=== PATIENT | female | born 1975 | race Caucasian/White ===

== ENCOUNTER 2018-10-04 08:00 | Outpatient (CLI) | payer BC, MEDICAID ==
[2018-10-04 12:23] LABS: BASOPHILS % (AUTO) 0.5 %; EOSINOPHILS # (AUTO) 0.1 10^3/uL (0.0-0.7); EOSINOPHILS % (AUTO) 2.3 %; HGB - HEMOGLOBIN 13.5 g/dL (12.0-16.0); LYMPHOCYTES # (AUTO) 2.5 10^3/uL (1.5-3.5); LYMPHOCYTES % (AUTO) 44.1 %; MEAN CORPUSCULAR HEMOGLOBIN 33.4 pg (27.0-31.0); MEAN CORPUSCULAR HGB CONC 34.6 g/dL (32.0-36.0); MEAN CORPUSCULAR VOLUME 96.6 fL (81.0-99.0); MEAN PLATELET VOLUME 8.7 fL (7.9-10.8); MONOCYTES # (AUTO) 0.4 10^3/uL (0.0-1.0); MONOCYTES % (AUTO) 6.9 %; NEUTROPHILS # (AUTO) 2.6 10^3/uL (1.5-6.6); NEUTROPHILS % (AUTO) 46.2 %; PLT - PLATELET COUNT 220 10^3/uL (130-450); RED BLOOD COUNT 4.04 10^6/uL (4.20-5.40); RED CELL DISTRIBUTION WIDTH 13.2 % (12.0-15.0); WHITE BLOOD COUNT 5.7 x10^3/uL (4.8-10.8)
[2018-10-04 13:13] LABS: CARBON DIOXIDE - CO2 27 mmol/L (21-32); CHLORIDE 104 mmol/L (101-111); GLUCOSE 94 mg/dL (70-100); SODIUM 138 mmol/L (135-145)
[2018-10-04 13:56] LABS: ALBUMIN 4.1 g/dL (3.2-5.5); ALBUMIN/GLOBULIN RATIO 1.4 (1.0-2.2); ALKALINE PHOSPHATASE 36 IU/L (42-121); ALT ALANINE AMINOTRANSFERASE 19 IU/L (10-60); AST ASPARTATE AMINOTRANSFERASE 22 IU/L (10-42); BILIRUBIN,TOTAL 0.8 mg/dL (0.2-1.0); BUN - BLOOD UREA NITROGEN 14 mg/dL (6-20); CHOL/HDL RATIO 4.5 (<4.4); CHOLESTEROL 227 mg/dL; CREATININE 0.9 mg/dL (0.4-1.0); GFR - MDRD 69 (>89); HDL CHOLESTEROL 50 mg/dL; LDL CHOLESTEROL,CALCULATED 163 mg/dL; LDL/HDL RATIO 3.3 (<4.4); TOTAL PROTEIN 7.1 g/dL (6.7-8.2); VLDL CHOLESTEROL 14 mg/dL
== END 2018-10-04 23:59 | disposition home or self-care (01) ==
LOC: LAB.WCP 08:00
PROVIDERS: ATTEND Nurse Practitioner
DX: R03.0 Elevated blood-pressure reading, without diagnosis of hypertension (principal)
CPT/HCPCS: 36415; 80053; 80061; 83721; 85025

== ENCOUNTER 2018-11-23 08:00 | Outpatient (CLI) | payer MEDICAID ==
[2018-11-23 19:38] LABS: % IRON SATURATION 19 % (20-50); IRON 67 ug/dL (28-170); TOTAL IRON BINDING CAPACITY 350 ug/dL (250-450); TRANSFERRIN 250 mg/dL (192-382)
[2018-11-23 19:53] LABS: FERRITIN 61.7 ng/mL (11.0-306.8)
[2018-11-23 19:57] LABS: FOLATE 14.78 ng/mL (5.90 - >24.8)
== END 2018-11-23 23:59 | disposition home or self-care (01) ==
LOC: LAB.N 08:00
PROVIDERS: ATTEND Nurse Practitioner
DX: D64.9 Anemia, unspecified (principal)
CPT/HCPCS: 36415; 82607; 82728; 82746; 83540; 84466

== ENCOUNTER 2018-11-23 14:16 | Outpatient (CLI) | payer MEDICAID ==
--- NOTE | 2018-11-24 11:48 | Mammography Report ---
Reason: SCREENING MAMMO Procedure Date: 11/23/2018 Accession Number: [id number] / [id number] Procedure: [facility] - Screening Mammo Dig Bilat CPT Code: FULL RESULT: EXAM: Screening Mammo Dig Bilat DATE: 11/23/2018 2:43 PM CLINICAL HISTORY: Routine screening. No reported personal or family history of breast cancer. TECHNIQUE: Bilateral CC and MLO views were obtained. COMPARISON: Baseline exam. FINDINGS: The breasts demonstrate scattered fibroglandular densities bilaterally. Right breast: There is an 8 mm one view asymmetry seen in the superior right MLO view only, 10 cm from the nipple. There are no suspicious calcifications or areas of distortion. Left breast: There is motion artifact which limits the lateral aspect of the left breast on the cc view. IMPRESSION: Right breast: 8 mm one view asymmetry superior right MLO view only as described. Incomplete. BI-RADS Category 0. Recommend additional views. Left breast: Technically limited left CC view due to motion. Incomplete. BI-RADS Category 0. Recommend repeat left CC view. BI-RADS CATEGORY 0: Incomplete examination STANDARD QUALIFYING STATEMENTS: 1. This examination was reviewed with the aid of Computer-Aided Detection (CAD). 2. A negative or benign imaging report should not preclude biopsy if clinically suspicious findings are present. 3. Dense breasts may obscure an underlying neoplasm. 4. This examination was reviewed without the aid of 3D breast imaging (tomosynthesis).
== END 2018-11-23 14:17 | disposition home or self-care (01) ==
LOC: DI.N 14:16
PROVIDERS: ATTEND Nurse Practitioner
DX: Z12.31 Encounter for screening mammogram for malignant neoplasm of breast (principal); R92.8 Other abnormal and inconclusive findings on diagnostic imaging of breast; D64.9 Anemia, unspecified
CPT/HCPCS: 36415; 77067; 82607; 82728; 82746; 83540; 84466

== ENCOUNTER 2018-12-06 08:55 | Outpatient (CLI) | payer MEDICAID ==
--- NOTE | 2018-12-06 16:13 | Mammography Report ---
Reason: ABNORMAL MAMMOGRAM Procedure Date: 12/06/2018 Accession Number: [id number] / [id number] Procedure: [facility] - Diag Special Views Dig RT CPT Code: FULL RESULT: EXAM: Diag Special Views Dig RT DATE: 12/06/2018 9:35 AM CLINICAL HISTORY: Technical repeat of the left CC view due to motion. Right breast asymmetry recalled from screening. TECHNIQUE: Left CC view and right ML as well as spot MLO views are obtained. COMPARISON: 11/23/2018. FINDINGS: The breasts demonstrate scattered fibroglandular densities bilaterally. Left cc view is normal. Evaluation of the right breast demonstrates the previous finding to be a result of normal tissue overlap. No suspicious calcifications, masses or architectural distortion are identified. IMPRESSION: Negative examination RECOMMENDATION: Recommend routine annual Screening mammography unless otherwise clinically indicated. BIRADS CATEGORY 1: Negative STANDARD QUALIFYING STATEMENTS: 1. This examination was not reviewed with the aid of Computer-Aided Detection (CAD). 2. A negative or benign imaging report should not delay biopsy if clinically suspicious findings are present. Consider surgical consultation if warrented. More than 5% of cancers are not identified by imaging. 3. Dense breasts may obscure an underlying neoplasm. 4. This examination was reviewed with the aid of 3D imaging (tomography).
== END 2018-12-06 08:56 | disposition home or self-care (01) ==
LOC: DI 08:55
PROVIDERS: ATTEND Nurse Practitioner
DX: R92.8 Other abnormal and inconclusive findings on diagnostic imaging of breast (principal)